=== PATIENT | female | born 1960 | race African-American/Black ===

== ENCOUNTER 2017-05-15 17:01 | Emergency (ER) | payer MEDICAID ==
[~2017-05-15] VITALS: Ht 157.5 cm; Wt 77.0 kg
[2017-05-15] MEDS ORDERED: ACETAMINOPHEN 500MG TABLET PO ONE (22:45)
[2017-05-15 23:19] LABS: BASOPHILS % 0.4 % (0.0-2.0); EOSINOPHILS % 0.6 % (0.0-5.0); HEMATOCRIT. 35.7 % (36.0-48.0); HEMOGLOBIN. 11.2 g/dL (12.0-16.0); LYMPHOCYTES % 35.7 % (20.0-50.0); MEAN CORPUSCULAR HEMOGLOBIN 24.6 pg (28.0-32.0); MEAN CORPUSCULAR VOLUME 78.3 fL (81.0-99.0); MEAN PLATELET VOLUME 8.6 fl (7.4-10.4); MONOCYTES % 8.2 % (2.0-8.0); NEUTROPHILS % 55.1 % (40.0-76.0); PLATELET 211 x1000/uL (130-400); RED BLOOD CELL COUNT 4.56 mill/uL (4.2-5.4); RED CELL DISTRIBUTION WIDTH 14.3 % (11.6-14.6)
[2017-05-15 23:30] LABS: CARBON DIOXIDE 29 mEq/L (21-32); CHLORIDE 103 mEq/L (98-107)
[2017-05-16 00:36] VITALS: BP 159/87
[2017-05-16] MEDS ORDERED: AMLODIPINE 5MG TABLET PO ONE (01:30)
== END 2017-05-16 01:46 | disposition home or self-care (01) ==
LOC: ER 17:01
DX: M72.2 Plantar fascial fibromatosis (principal); I10 Essential (primary) hypertension
CPT/HCPCS: 36415; 71045; 73630; 80048; 85025; 93005; 99285; Z7610